=== PATIENT | female | born 1955 | race Caucasian/White ===

== ENCOUNTER 2020-02-07 23:26 | Emergency (ER) | payer MEDICARE, MEDICAID ==
[2020-02-07] MEDS ORDERED: traMADol 50 MG Tab PO ONE (23:27)
[2020-02-08 00:20] LABS: ANION GAP 13.7 mEq/L (7-13)
[2020-02-08] MEDS ORDERED: cefTRIAXone 1 GM in Sodium Chloride 0.9% 50 ML IV ONE (00:21)
--- NOTE | 2020-02-08 00:22 | EDM.PDOC ---
ED HPI GENERAL MEDICAL PROBLEM - General Chief Complaint: Skin Complaint Stated Complaint: SORE ON LEG Time Seen by Provider: 02/07/20 23:40 Source of Information: Reports: Patient History Limitations: Reports: No Limitations - History of Present Illness INITIAL COMMENTS - FREE TEXT/NARRATIVE: ED with c/o redness swelling and pain to right lower leg. Dropped 2x4 on Thursday and scratched front of leg. Pustular drainage today. No hx skin infections. IDDM with slight increase in evenig blood sugar from normal. no fever or chills. Right Lower Leg Pain Score (Numeric/FACES): 9 - Related Data Allergies Allergy/AdvReac Type Severity Reaction Status Date / Time codeine Allergy Abdominal Verified 02/08/20 00:16 Pain erythromycin base Allergy Itching Verified 02/08/20 00:16 [Erythromycin Base] sumatriptan [From Imitrex] Allergy Tachycardia Verified 02/08/20 00:16 sumatriptan succinate Allergy Tachycardia Verified 02/08/20 00:16 [From Imitrex] Home Meds: Home Meds DULoxetine [Cymbalta] 120 mg PO DAILY 01/07/14 [History] Insulin Detemir [Levemir] 45 unit SUBCUT BEDTIME 01/07/14 [History] Metoprolol Tartrate 100 mg PO BID 01/07/14 [History] amLODIPine [Norvasc] 10 mg PO DAILY 01/07/14 [History] sitaGLIPtin Phos/Metformin HCl [Janumet 50-500 MG] 1 tab PO BID 02/28/14 [ History] Insulin Aspart [Novolog Flexpen] See Protocol SQ BID 05/01/14 [History] Aspirin 325 mg PO DAILY 06/12/14 [History] Albuterol [Proair HFA] 2 puff INH Q6H PRN 04/02/16 [History] Formoterol/Mometasone [Dulera 100 MCG/5 MCG] 1 puff PO BID PRN 04/02/16 [History ] Gemfibrozil 1 tab PO DAILY 04/02/16 [History] atorvaSTATin [Lipitor] 80 mg PO BEDTIME 04/02/16 [History] Losartan Potassium [Cozaar] 100 mg PO DAILY 04/22/16 [History] Magnesium Oxide 400 mg PO BID 04/22/16 [History] Pantoprazole [ProTONIX] 40 mg PO DAILY 04/22/16 [History] Potassium Chloride [Klor-Con M20] 20 meq PO BID 04/22/16 [History] Triamcinolone Acetonide [Triamcinolone Acetonide 0.1% Oint] 1 applic TOP ASDIRECTED PRN 04/22/16 [History] Past Medical History HEENT History: Reports: Hard of Hearing, Impaired Vision, Other (See Below) Other HEENT History: WEARS CORRECTIVE LENSES Cardiovascular History: Reports: CAD, High Cholesterol, Hypertension Respiratory History: Reports: Bronchitis, Recurrent, Sleep Apnea Gastrointestinal History: Reports: Chronic Diarrhea, Colon Polyp, GERD Other Gastrointestinal History: states diarrhea for 1 year Genitourinary History: Reports: None 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: Musculoskeletal History: Reports: Back Pain, Chronic Neurological History: Reports: Migraines Psychiatric History: Reports: Depression Endocrine/Metabolic History: Reports: Diabetes, Type II Hematologic History: Reports: None Immunologic History: Reports: None Oncologic (Cancer) History: Reports: Cervix Dermatologic History: Reports: None - Infectious Disease History Infectious Disease History: Reports: Chicken Pox, Measles, Mumps, Rubella - Past Surgical History Head Surgeries/Procedures: Reports: None HEENT Surgical History: Reports: Other (See Below) Female Surgical History: Reports: Hysterectomy Neurological Surgical History: Reports: None Musculoskeletal Surgical History: Reports: Other (See Below) Oncologic Surgical History: Reports: None Dermatological Surgical History: Reports: None Social & Family History - Family History Family Medical History: Noncontributory - Tobacco Use Smoking Status *Q: Current Every Day Smoker Years of Tobacco use: 40 Packs/Tins Daily: 1 - Caffeine Use Caffeine Use: Reports: Coffee - Recreational Drug Use Recreational Drug Use: No - Living Situation & Occupation Living situation: Reports: with Family ED ROS GENERAL - Review of Systems Review Of Systems: Comprehensive ROS is negative, except as noted in HPI. ED EXAM, SKIN/RASH Exam: See Below Exam Limited By: No Limitations General Appearance: Alert, Mild Distress Eye Exam: Bilateral Eye: EOMI Ears: Normal External Exam Nose: Normal Inspection Throat/Mouth: Normal Inspection Head: Atraumatic, Normocephalic Neck: Normal Inspection, Full Range of Motion Respiratory/Chest: No Respiratory Distress, Normal Breath Sounds Cardiovascular: Normal Peripheral Pulses, Regular Rate, Rhythm GI/Abdominal: Soft Extremities: Normal Range of Motion, Increased Warmth, Redness (RIght anterior chin lower extremity) Neurological: Alert, Oriented, Normal Cognition Psychiatric: Normal Affect, Normal Mood Skin: Warm, Dry, Intact Location, Skin: Lower Extremity, Right (7cm vertical lesion 1cm superficial gaping, bloody crusting to edges with few macular cloudy blisters, scant dranage lower incision) Associated features: Warmth, Tenderness, Swelling, Induration Course - Vital Signs Last Recorded V/S: Last Vital Signs Temp 97.6 F 02/08/20 00:32 Pulse 79 02/08/20 00:32 Resp 17 02/08/20 00:32 BP 145/62 H 02/08/20 00:55 Pulse Ox 98 02/08/20 00:32 - Orders/Labs/Meds Orders: Active Orders 24 hr Category Date Time Status CULTURE BLOOD [BC] Stat Lab 02/07/20 23:39 Ordered CULTURE BLOOD [BC] Stat Lab 02/07/20 23:51 Received CULTURE WOUND [RM] Stat Lab 02/08/20 00:21 Received Blood Culture x2 Reflex Set [OM.PC] Stat Oth 02/07/20 23:38 Ordered Labs: Laboratory Tests 02/07/20 02/07/20 02/07/20 Range/Units 23:51 23:51 23:51 WBC 7.4 (5.0-10.0) 10^3/uL RBC 4.53 (4.2-5.4) 10^6/uL Hgb 14.1 (12.0-16.0) g/dL Hct 41.7 (37.0-47.0) % MCV 92.1 D (80-100) fL MCH 31.1 (27.0-34.0) pg MCHC 33.8 (33.0-35.0) g/dL Plt Count 222 (150-450) 10^3/uL Neut % (Auto) 51.8 (42.2-75.2) % Lymph % (Auto) 35.2 (20.5-50.1) % [place] % (Auto) 9.8 H (2-8) % Eos % (Auto) 2.3 (1.0-3.0) % Baso % (Auto) 0.9 (0.0-1.0) % Sodium 137 (136-145) mmol/L Potassium 3.7 (3.5-5.1) mmol/L Chloride 98 (98-107) mmol/L Carbon Dioxide 29 (21-32) mmol/L Anion Gap 13.7 H (7-13) mEq/L BUN 18 (7-18) mg/dL Creatinine 0.96 (0.55-1.02) mg/dL Est Cr Clr Drug Dosing 55.42 mL/min Estimated GFR (MDRD) 59 BUN/Creatinine Ratio 18.8 (No establ ref range) Glucose 310 H (74-99) mg/dL Lactic Acid 1.6 (0.4-2.0) mmol/L Calcium 9.7 (8.5-10.1) mg/dL Total Bilirubin 0.5 (0.2-1.0) mg/dL AST 39 H (15-37) U/L ALT 56 (14-59) U/L Alkaline Phosphatase 144 H (46-116) U/L Total Protein 7.1 (6.4-8.2) g/dL Albumin 3.6 (3.4-5.0) g/dL Globulin 3.5 Albumin/Globulin Ratio 1.0 Meds: Medications Discontinued Medications Generic Name Dose Route Start Last Admin Trade Name Freq PRN Reason Stop Dose Admin Hydrocodone Bitart/Acetaminophen 1 tab 02/08/20 00:32 02/08/20 00:37 [place] 325-10 Mg PO 02/08/20 00:33 1 tab ONETIME ONE Administration Ceftriaxone Sodium 1 gm/ 50 mls @ 100 mls/hr 02/08/20 00:21 02/08/20 00:30 Sodium Chloride IV 02/08/20 00:50 100 mls/hr ONETIME ONE Administration Tramadol HCl Confirm 02/08/20 00:53 02/08/20 01:02 Ultram Administered 02/08/20 00:54 Not Given Dose 50 mg .ROUTE .STK-MED ONE Departure - Departure Time of Disposition: 01:15 Disposition: Home, Self-Care 01 Condition: Good Clinical Impression: IDDM (insulin dependent diabetes mellitus) Cellulitis Qualifiers: Site of cellulitis: extremity Site of cellulitis of extremity: lower extremity Laterality: right Qualified Code(s): L03.115 - Cellulitis of right lower limb - Discharge Information *PRESCRIPTION DRUG MONITORING PROGRAM REVIEWED*: No *COPY OF PRESCRIPTION DRUG MONITORING REPORT IN PATIENT LILIANA: No Instructions: Cellulitis, Adult Forms: ED Department Discharge Additional Instructions: Tramadol 50mg one q 6 hours as needed for severe pain doxycycline 100mg one twice daily for one week Clinic follow up on Thursday keep area clean and dry cover when up Sepsis Event Note - Evaluation Sepsis Screening Result: No Definite Risk - Focused Exam Vital Signs: Vital Signs Temp Pulse Resp BP Pulse Ox 02/08/20 00:55 145/62 H 02/08/20 00:32 97.6 F 79 17 178/66 H 98 02/07/20 23:36 97.6 F 90 19 159/125 H 98 Date Exam was Performed: 02/08/20 Time Exam was Performed: 06:01 - My Orders Last 24 Hours: My Active Orders 02/07/20 23:38 Blood Culture x2 Reflex Set [OM.PC] Stat 02/07/20 23:39 CULTURE BLOOD [BC] Stat 02/07/20 23:51 CULTURE BLOOD [BC] Stat 02/08/20 00:21 CULTURE WOUND [RM] Stat - Assessment/Plan Last 24 Hours: My Active Orders 02/07/20 23:38 Blood Culture x2 Reflex Set [OM.PC] Stat 02/07/20 23:39 CULTURE BLOOD [BC] Stat 02/07/20 23:51 CULTURE BLOOD [BC] Stat 02/08/20 00:21 CULTURE WOUND [RM] Stat
[2020-02-08] MEDS ORDERED: Acetaminophen/HYDROcodone 325-10 MG Tab PO ONE (00:32)
[2020-02-08 00:33] VITALS: PULSE 79
[2020-02-08] MEDS ORDERED: traMADol 50 MG Tab ONE (00:53)
[2020-02-08 00:56] VITALS: BP 145/62
== END 2020-02-08 01:22 | disposition home or self-care (01) ==
LOC: DL.ED 23:26
DX: L03.115 Cellulitis of right lower limb (principal); E11.9 Type 2 diabetes mellitus without complications; I25.10 Atherosclerotic heart disease of native coronary artery without angina pectoris; E78.00 Pure hypercholesterolemia, unspecified; I10 Essential (primary) hypertension; K21.9 Gastro-esophageal reflux disease without esophagitis; F32.9 Major depressive disorder, single episode, unspecified; F17.210 Nicotine dependence, cigarettes, uncomplicated; Z88.5 Allergy status to narcotic agent; Z88.1 Allergy status to other antibiotic agents; Z88.8 Allergy status to other drugs, medicaments and biological substances; Z79.4 Long term (current) use of insulin; Z79.899 Other long term (current) drug therapy; Z79.82 Long term (current) use of aspirin
CPT/HCPCS: 36415; 80053; 83605; 85025; 87040; 87070; 96365; 99283-25; A9270-GY; J0696; J7050

== ENCOUNTER 2020-12-26 21:11 | Emergency (ER) | payer MEDICARE, MEDICAID ==
[2020-12-26 21:31] VITALS: BP 156/65; PULSE 78
--- NOTE | 2020-12-26 21:46 | CT ---
PROCEDURE INFORMATION: Exam: CT Head Without Contrast Exam date and time: 12/26/2020 9:38 PM Age: 65 years old Clinical indication: Speech disturbance; Additional info: Slurred speech, stroke code TECHNIQUE: Imaging protocol: Computed tomography of the head without contrast. Radiation optimization: All CT scans at this facility use at least one of these dose optimization techniques: automated exposure control; mA and/or kV adjustment per patient size (includes targeted exams where dose is matched to clinical indication); or iterative reconstruction. Other technique: STROKE PROTOCOL was implemented. COMPARISON: No relevant prior studies available. FINDINGS: Brain: There is mild amount of scattered areas of hypoattenuation of the supratentorial white matter, most likely secondary to microvascular ischemic changes. No acute intracranial hemorrhage. Cerebral ventricles: No ventriculomegaly. Bones/joints: Unremarkable. No acute fracture. Paranasal sinuses: Visualized sinuses are unremarkable. No fluid levels. Mastoid air cells: Visualized mastoid air cells are well aerated. Soft tissues: Unremarkable. IMPRESSION: No acute intracranial process. ASSESSMENT: ASPECTS (Nguyen Stroke Program Early CT Score) is 10.
[2020-12-26 21:48] LABS: CHLORIDE,CL 100 mmol/L (98-107); SODIUM,NA 138 mmol/L (136-145)
--- NOTE | 2020-12-26 22:32 | EDM.PDOC ---
ED HPI GENERAL MEDICAL PROBLEM - General Chief Complaint: Neuro Symptoms/Deficits Stated Complaint: POSSIBLE STROKE Time Seen by Provider: 12/26/20 21:20 - History of Present Illness INITIAL COMMENTS - FREE TEXT/NARRATIVE: There is a 65-year-old female with a significant past medical history of diabetes, hypokalemia, and hypomagnesemia that presented to the emergency department today for slurred speech. Flower states that around 9:00 this evening she was having dinner and drinking with one of her friends and she noticed that she was starting to slur her speech. During the episode she had associated right facial numbness and a heaviness in her tongue. She was taken to the emergency department by her friend when she arrived to emergency department her symptoms resolved. She denies any symptoms currently and feels back at her baseline. She denies any weakness, vision changes, chest pain, difficulty walking, or balance issues. Onset: Today Onset Date: 12/26/20 Onset Time: 09:00 Location: Reports: Face - Related Data Allergies Allergy/AdvReac Type Severity Reaction Status Date / Time codeine Allergy Abdominal Verified 12/26/20 21:24 Pain erythromycin base Allergy Itching Verified 12/26/20 21:24 [Erythromycin Base] sumatriptan [From Imitrex] Allergy Tachycardia Verified 12/26/20 21:24 sumatriptan succinate Allergy Tachycardia Verified 12/26/20 21:24 [From Imitrex] Home Meds: Home Meds DULoxetine [Cymbalta] 120 mg PO DAILY 01/07/14 [History] Insulin Detemir [Levemir] 45 unit SUBCUT BEDTIME 01/07/14 [History] Metoprolol Tartrate 100 mg PO BID 01/07/14 [History] amLODIPine [Norvasc] 10 mg PO DAILY 01/07/14 [History] sitaGLIPtin Phos/Metformin HCl [Janumet 50-500 MG] 1 tab PO BID 02/28/14 [History] Insulin Aspart [Novolog Flexpen] See Protocol SQ BID 05/01/14 [History] Aspirin 325 mg PO DAILY 06/12/14 [History] Albuterol [Proair HFA] 2 puff INH Q6H PRN 04/02/16 [History] Formoterol/Mometasone [Dulera 100 MCG/5 MCG] 1 puff PO BID PRN 04/02/16 [History] Gemfibrozil 1 tab PO DAILY 04/02/16 [History] atorvaSTATin [Lipitor] 80 mg PO BEDTIME 04/02/16 [History] Losartan Potassium [Cozaar] 100 mg PO DAILY 04/22/16 [History] Magnesium Oxide 400 mg PO BID 04/22/16 [History] Pantoprazole [ProTONIX] 40 mg PO DAILY 04/22/16 [History] Potassium Chloride [Klor-Con M20] 20 meq PO BID 04/22/16 [History] Triamcinolone Acetonide [Triamcinolone Acetonide 0.1% Oint] 1 applic TOP ASDIRECTED PRN 04/22/16 [History] Past Medical History HEENT History: Reports: Hard of Hearing, Impaired Vision, Other (See Below) Other HEENT History: WEARS CORRECTIVE LENSES Cardiovascular History: Reports: CAD, High Cholesterol, Hypertension Respiratory History: Reports: Bronchitis, Recurrent, Sleep Apnea Gastrointestinal History: Reports: Chronic Diarrhea, Colon Polyp, GERD Other Gastrointestinal History: states diarrhea for 1 year Genitourinary History: Reports: None 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: Musculoskeletal History: Reports: Back Pain, Chronic Neurological History: Reports: Migraines Psychiatric History: Reports: Depression Endocrine/Metabolic History: Reports: Diabetes, Type II Hematologic History: Reports: None Immunologic History: Reports: None Oncologic (Cancer) History: Reports: Cervix Dermatologic History: Reports: None - Infectious Disease History Infectious Disease History: Reports: Chicken Pox, Measles, Mumps, Rubella - Past Surgical History Head Surgeries/Procedures: Reports: None HEENT Surgical History: Reports: Other (See Below) Other HEENT Surgeries/Procedures: MANIBLE SURGERY X2 Cardiovascular Surgical History: Reports: None Respiratory Surgical History: Reports: None GI Surgical History: Reports: Cholecystectomy, Colonoscopy, EGD Other GI Surgeries/Procedures: 10 years ago Female Surgical History: Reports: Hysterectomy Neurological Surgical History: Reports: None Musculoskeletal Surgical History: Reports: Other (See Below) Other Musculoskeletal Surgeries/Procedures:: BUNIONECTOMY RIGHT Oncologic Surgical History: Reports: None Dermatological Surgical History: Reports: None Social & Family History - Family History Family Medical History: No Pertinent Family History - Tobacco Use Tobacco Use Status *Q: Current Every Day Tobacco User Years of Tobacco use: 50 Packs/Tins Daily: 1 - Caffeine Use Caffeine Use: Reports: Coffee - Recreational Drug Use Recreational Drug Use: No - Living Situation & Occupation Living situation: Reports: with Family ED ROS GENERAL - Review of Systems Review Of Systems: Comprehensive ROS is negative, except as noted in HPI. ED EXAM, NEURO - Physical Exam Exam: See Below Exam Limited By: No Limitations General Appearance: Alert, WD/WN, No Apparent Distress Ears: Normal External Exam Throat/Mouth: Normal Inspection Head Exam: Atraumatic Neck: Normal Inspection, Non-Tender, Full Range of Motion Respiratory/Chest: No Respiratory Distress, Lungs Clear, Normal Breath Sounds Cardiovascular: Normal Peripheral Pulses, Regular Rate, Rhythm, No Edema GI/Abdominal: Normal Bowel Sounds, Soft, Non-Tender Neurological: Alert, Normal Mood/Affect, CN II-XII Intact, No Motor/Sensory Deficits, Oriented x 3. No: Abnormal Finger to Nose, Abnormal Sensation #1 Interpretation EKG Date: 12/26/20 Time: 21:18 Rhythm: NSR Rate (Beats/Min): 74 [place]: Normal P-Wave: Present QRS: Normal ST-T: Normal QT: Normal Comparison: NA - No Prior EKG Course - Vital Signs Last Recorded V/S: Last Vital Signs Temp 98.1 F 12/26/20 21:20 Pulse 78 12/26/20 21:20 Resp 18 12/26/20 21:20 BP 156/65 H 12/26/20 21:20 Pulse Ox 99 12/26/20 21:20 - Orders/Labs/Meds Labs: Laboratory Tests 12/26/20 12/26/20 12/26/20 Range/Units 21:23 21:23 21:23 WBC 9.4 (5.0-10.0) 10^3/uL RBC 4.33 (4.2-5.4) 10^6/uL Hgb 13.2 (12.0-16.0) g/dL Hct 39.5 (37.0-47.0) % MCV 91.2 (80-100) fL MCH 30.5 (27.0-34.0) pg MCHC 33.4 (33.0-35.0) g/dL Plt Count 267 (150-450) 10^3/uL Neut % (Auto) 59.2 (42.2-75.2) % Lymph % (Auto) 29.3 (20.5-50.1) % [place] % (Auto) 8.9 H (2-8) % Eos % (Auto) 2.2 (1.0-3.0) % Baso % (Auto) 0.4 (0.0-1.0) % D-Dimer, Quantitative (0-400) ng/mL Sodium 138 (136-145) mmol/L Potassium 3.0 L (3.5-5.1) mmol/L Chloride 100 (98-107) mmol/L Carbon Dioxide 25 (21-32) mmol/L Anion Gap 16.0 H (7-13) mEq/L BUN 18 (7-18) mg/dL Creatinine 0.87 (0.55-1.02) mg/dL Est Cr Clr Drug Dosing 60.35 mL/min Estimated GFR (MDRD) > 60 BUN/Creatinine Ratio 20.7 (No establ ref range) Glucose 287 H (70-99) mg/dL POC Glucose 278 H (70-105) mg/dl Calcium 8.8 (8.5-10.1) mg/dL Magnesium (1.8-2.4) mg/dL Total Bilirubin 0.5 (0.2-1.0) mg/dL AST 29 (15-37) U/L ALT 34 (14-59) U/L Alkaline Phosphatase 139 H (46-116) U/L Troponin I < 0.017 (0.000-0.056) ng/mL Total Protein 6.9 (6.4-8.2) g/dL Albumin 3.4 (3.4-5.0) g/dL Globulin 3.5 Albumin/Globulin Ratio 1.0 Ethyl Alcohol 7 (0) mg/dL 12/26/20 12/26/20 Range/Units 21:23 21:23 WBC (5.0-10.0) 10^3/uL RBC (4.2-5.4) 10^6/uL Hgb (12.0-16.0) g/dL Hct (37.0-47.0) % MCV (80-100) fL MCH (27.0-34.0) pg MCHC (33.0-35.0) g/dL Plt Count (150-450) 10^3/uL Neut % (Auto) (42.2-75.2) % Lymph % (Auto) (20.5-50.1) % [place] % (Auto) (2-8) % Eos % (Auto) (1.0-3.0) % Baso % (Auto) (0.0-1.0) % D-Dimer, Quantitative 195 (0-400) ng/mL Sodium (136-145) mmol/L Potassium (3.5-5.1) mmol/L Chloride (98-107) mmol/L Carbon Dioxide (21-32) mmol/L Anion Gap (7-13) mEq/L BUN (7-18) mg/dL Creatinine (0.55-1.02) mg/dL Est Cr Clr Drug Dosing mL/min Estimated GFR (MDRD) BUN/Creatinine Ratio (No establ ref range) Glucose (70-99) mg/dL POC Glucose (70-105) mg/dl Calcium (8.5-10.1) mg/dL Magnesium 1.1 L (1.8-2.4) mg/dL Total Bilirubin (0.2-1.0) mg/dL AST (15-37) U/L ALT (14-59) U/L Alkaline Phosphatase (46-116) U/L Troponin I (0.000-0.056) ng/mL Total Protein (6.4-8.2) g/dL Albumin (3.4-5.0) g/dL Globulin Albumin/Globulin Ratio Ethyl Alcohol (0) mg/dL Meds: Medications Discontinued Medications Generic Name Dose Route Start Last Admin Trade Name Freq PRN Reason Stop Dose Admin Magnesium Sulfate 2 gm in 50 mls @ 25 mls/hr 12/26/20 22:49 12/26/20 23:01 Magnesium Sulfate In Water 2 Gm/50 Ml IV 12/27/20 00:48 25 mls/hr ONETIME ONE Administration Potassium Chloride 10 meq/ 100 mls @ 100 mls/hr 12/26/20 22:49 12/26/20 22:59 Premix IV 12/26/20 23:48 100 mls/hr ONETIME ONE Administration - Radiology Interpretation Free Text/Narrative:: Head CT wo contrast: PROCEDURE INFORMATION: Exam: CT Head Without Contrast Exam date and time: 12/26/2020 9:38 PM Age: 65 years old Clinical indication: Speech disturbance; Additional info: Slurred speech, stroke code TECHNIQUE: Imaging protocol: Computed tomography of the head without contrast. Radiation optimization: All CT scans at this facility use at least one of these dose optimization techniques: automated exposure control; mA and/or kV adjustment per patient size (includes targeted exams where dose is matched to clinical indication); or iterative reconstruction. Other technique: STROKE PROTOCOL was implemented. COMPARISON: No relevant prior studies available. FINDINGS: Brain: There is mild amount of scattered areas of hypoattenuation of the supratentorial white matter, most likely secondary to microvascular ischemic changes. No acute intracranial hemorrhage. Cerebral ventricles: No ventriculomegaly. Bones/joints: Unremarkable. No acute fracture. Paranasal sinuses: Visualized sinuses are unremarkable. No fluid levels. Mastoid air cells: Visualized mastoid air cells are well aerated. Soft tissues: Unremarkable. IMPRESSION: No acute intracranial process. ASSESSMENT: ASPECTS (Nguyen Stroke Program Early CT Score) is 10. Thank you for allowing us to participate in the care of your patient. Dictated and Authenticated by: Bong Khoury MD 12/26/2020 9:46 PM Central Time ([place] & [place]) See rad report - Re-Assessments/Exams Free Text/Narrative Re-Assessment/Exam: 12/26/20 23:08 Patient also c/o tenderness and pain behind the right knee with walking. D-Dimer ordered, negative. 12/27/20 01:56 I saw and evaluated the patient. Discussed with resident and agree with residents findings and plan as documented in the residents note. Patient refuses to stay in the hospital. She states she will follow up with her primary care provider tomorrow. Departure - Departure Time of Disposition: 00:42 Disposition: Against Medical Advice 07 Condition: Fair Clinical Impression: Hypomagnesemia, Hypokalemia, Slurred speech, Right facial numbness - Discharge Information *PRESCRIPTION DRUG MONITORING PROGRAM REVIEWED*: No *COPY OF PRESCRIPTION DRUG MONITORING REPORT IN PATIENT LILIANA: No Instructions: Hypomagnesemia, Hypokalemia Referrals: PCP,Unobtain [Ordering Only Provider] - Forms: ED Department Discharge, Refusal of Care AMA Additional Instructions: Begin taking your magnesium again Make appointment with Dr. Javier in follow-up Return to the ER with any worsening of problems Sepsis Event Note (ED) - Evaluation Sepsis Screening Result: No Definite Risk - Focused Exam Vital Signs: Vital Signs Temp Pulse Resp BP Pulse Ox 12/26/20 21:20 98.1 F 78 18 156/65 H 99
[2020-12-26] MEDS ORDERED: Magnesium Sulfate/Water 2 GM/50 ML BAG IV ONE (22:49)
[2020-12-26] MEDS ORDERED: Potassium Chloride 10 MEQ in Premix Bag 1 BAG IV ONE (22:49)
== END 2020-12-27 00:59 | disposition left against medical advice (07) ==
LOC: DL.ED 21:11
DX: R47.81 Slurred speech (principal); E83.42 Hypomagnesemia; E87.6 Hypokalemia; R20.0 Anesthesia of skin; E78.00 Pure hypercholesterolemia, unspecified; I10 Essential (primary) hypertension; I25.10 Atherosclerotic heart disease of native coronary artery without angina pectoris; K21.9 Gastro-esophageal reflux disease without esophagitis; E11.9 Type 2 diabetes mellitus without complications; Z88.5 Allergy status to narcotic agent; Z88.1 Allergy status to other antibiotic agents; Z88.8 Allergy status to other drugs, medicaments and biological substances; Z79.82 Long term (current) use of aspirin; Z79.4 Long term (current) use of insulin; Z72.0 Tobacco use
CPT/HCPCS: 36415; 70450; 80053; 80307; 82962; 83735; 84484; 85025; 85379; 93005; 93010; 96365; 96366; 96368; 99284; 99285; J3475; J3480

== ENCOUNTER → 2023-01-20 | Day surgery (SDC) | payer MEDICARE, MEDICAID ==
[~2023-01-20] MED LIST: Dextrose 5%-0.45% NaCl 1,000 ML IV SCH; Midazolam 1 MG/ML 2 ML SDV IV ONE; Midazolam 1 MG/ML 2 ML SDV ONE; fentaNYL 100 MCG/2 ML SDV IV ONE; fentaNYL 100 MCG/2 ML SDV ONE
[2023-01-20 08:37] VITALS: BP 143/58; PULSE 62
== END | disposition home or self-care (01) ==
LOC: DL.ENDO 05:25
PROVIDERS: ATTEND Internal Medicine Gastroenterology
DX: K29.50 Unspecified chronic gastritis without bleeding (principal); K31.89 Other diseases of stomach and duodenum; D50.9 Iron deficiency anemia, unspecified; E66.09 Other obesity due to excess calories; E11.9 Type 2 diabetes mellitus without complications; E78.5 Hyperlipidemia, unspecified; I10 Essential (primary) hypertension; G47.33 Obstructive sleep apnea (adult) (pediatric); F32.A Depression, unspecified; Z90.49 Acquired absence of other specified parts of digestive tract; Z98.890 Other specified postprocedural states; Z86.16 Personal history of COVID-19; Z88.5 Allergy status to narcotic agent; Z88.1 Allergy status to other antibiotic agents; Z88.8 Allergy status to other drugs, medicaments and biological substances; Z68.30 Body mass index [BMI] 30.0-30.9, adult
CPT/HCPCS: 43239; 87077; J2250; J3010; J7042

== ENCOUNTER 2023-01-23 06:54 | Day surgery (SDC) | payer MEDICARE, MEDICAID ==
[~2023-01-23 06:54] MED LIST changes: -Midazolam 1 MG/ML 2 ML SDV IV ONE; +Sodium Chloride 0.9% 10 ML Syringe FLUSH PRN; +Sodium Chloride 0.9% 10 ML Syringe FLUSH SCH; -fentaNYL 100 MCG/2 ML SDV IV ONE
[2023-01-23] MEDS ORDERED: Midazolam 1 MG/ML 2 ML SDV IV ONE ×9 (06:55→08:41)
[2023-01-23] MEDS ORDERED: fentaNYL 100 MCG/2 ML SDV IV ONE ×8 (06:55→08:39)
[2023-01-23 09:50] VITALS: PULSE 51
[2023-01-23 10:12] VITALS: BP 129/56
== END 2023-01-23 11:00 | disposition home or self-care (01) ==
LOC: DL.ENDO 06:54
PROVIDERS: ATTEND Internal Medicine Gastroenterology
DX: K63.5 Polyp of colon (principal); K57.30 Diverticulosis of large intestine without perforation or abscess without bleeding; D64.9 Anemia, unspecified; F17.210 Nicotine dependence, cigarettes, uncomplicated; K64.4 Residual hemorrhoidal skin tags; K64.8 Other hemorrhoids
CPT/HCPCS: 88305; J2250; J3010; J7042

== ENCOUNTER 2025-03-29 08:59 | Day surgery (SDC) | payer MEDICARE, OTHER, MEDICAID ==
[~2025-03-29 08:59] MED LIST changes: +Dexamethasone 4 MG/ML SDV ONE; -Dextrose 5%-0.45% NaCl 1,000 ML IV SCH; -Midazolam 1 MG/ML 2 ML SDV ONE; -Sodium Chloride 0.9% 10 ML Syringe FLUSH PRN; -Sodium Chloride 0.9% 10 ML Syringe FLUSH SCH; -fentaNYL 100 MCG/2 ML SDV ONE
[2025-03-29] MEDS ORDERED: Midazolam 1 MG/ML 2 ML SDV IV ONE (09:00)
[2025-03-29] MEDS ORDERED: Ondansetron 4 MG/2 ML SDV IVPUSH PRN (09:00)
[2025-03-29] MEDS ORDERED: Sodium Chloride 0.9% 10 ML Syringe IV ONE (09:00)
[2025-03-29] MEDS ORDERED: Dexamethasone 4 MG/ML SDV IV ONE (09:00)
[2025-03-29] MEDS: Moxifloxacin 0.5% Ophth Soln 3 ML Bottle EYELF ONE (09:29)
[2025-03-29] MEDS: Povidone-Iodine 5% Sterile Ophth Soln 30 ML Bottle EYELF ONE ×2 (09:29→09:50)
[2025-03-29] MEDS: Timolol Maleate 0.5% Ophth Soln 5 ML Bottle EYELF ONE (09:30)
[2025-03-29] MEDS: Phenylephrine 10% Ophth Soln 5 ML Bot EYELF PRN (09:30)
[2025-03-29] MEDS: Cataract Ophth Solution EYELF ONE (09:31)
[2025-03-29] MEDS: Apraclonidine 0.5% Ophth Soln 5 ML Bot EYELF ONE ×2 (09:50→10:05)
[2025-03-29] MEDS: Diclofenac Sodium 0.1% Ophth Soln 5 ML Bottle EYELF ONE ×2 (09:50→10:05)
[2025-03-29] MEDS: Dexamethasone/Neomycin/Polymyxin B Ophth Oint 3.5 GM Tube EYELF ONE ×2 (09:51→10:05)
[2025-03-29 10:38] VITALS: BP 142/73; PULSE 100
[2025-03-29] MEDS ORDERED: Dexamethasone 4 MG/ML SDV ONE (10:49)
== END 2025-03-29 10:40 | disposition home or self-care (01) ==
LOC: DL.SDS 08:59
PROVIDERS: ATTEND Ophthalmology
DX: E11.36 Type 2 diabetes mellitus with diabetic cataract (principal); H25.812 Combined forms of age-related cataract, left eye; I10 Essential (primary) hypertension; I25.10 Atherosclerotic heart disease of native coronary artery without angina pectoris; F32.A Depression, unspecified; E03.9 Hypothyroidism, unspecified; F17.210 Nicotine dependence, cigarettes, uncomplicated; Z88.5 Allergy status to narcotic agent; Z88.1 Allergy status to other antibiotic agents; Z88.8 Allergy status to other drugs, medicaments and biological substances; Z79.890 Hormone replacement therapy; Z79.4 Long term (current) use of insulin; Z79.899 Other long term (current) drug therapy
CPT/HCPCS: 66984; A9270; J1100; J2003; J2250; J3370; V2632; J3490

== ENCOUNTER 2025-04-12 06:41 | Day surgery (SDC) | payer MEDICARE, MEDICAID ==
[2025-04-12] MEDS ORDERED: Midazolam 1 MG/ML 2 ML SDV IV ONE (06:42)
[2025-04-12] MEDS ORDERED: Dexamethasone 4 MG/ML SDV IV ONE (06:42)
[2025-04-12] MEDS ORDERED: Sodium Chloride 0.9% 10 ML Syringe IV ONE (06:42)
[2025-04-12] MEDS: Povidone-Iodine 5% Sterile Ophth Soln 30 ML Bottle EYERT ONE ×2 (07:36→09:37)
[2025-04-12] MEDS: Moxifloxacin 0.5% Ophth Soln 3 ML Bottle EYERT ONE (07:36)
[2025-04-12] MEDS: Phenylephrine 10% Ophth Soln 5 ML Bot EYERT ONE (07:37)
[2025-04-12] MEDS: Cataract Ophth Solution EYERT ONE (07:38)
[2025-04-12] MEDS: Timolol Maleate 0.5% Ophth Soln 5 ML Bottle EYERT ONE (07:38)
[2025-04-12] MEDS ORDERED: Ondansetron 4 MG/2 ML SDV IVPUSH PRN (08:30)
[2025-04-12] MEDS: Diclofenac Sodium 0.1% Ophth Soln 5 ML Bottle EYERT ONE (09:50)
[2025-04-12] MEDS: Dexamethasone/Neomycin/Polymyxin B Ophth Oint 3.5 GM Tube EYERT ONE (09:50)
[2025-04-12] MEDS: Apraclonidine 0.5% Ophth Soln 5 ML Bot EYERT ONE (09:50)
[2025-04-12 10:24] VITALS: BP 156/67; PULSE 52
== END 2025-04-12 10:26 | disposition home or self-care (01) ==
LOC: DL.SDS 06:41
PROVIDERS: ATTEND Ophthalmology
DX: E11.36 Type 2 diabetes mellitus with diabetic cataract (principal); H25.811 Combined forms of age-related cataract, right eye; I10 Essential (primary) hypertension; E03.9 Hypothyroidism, unspecified; I25.10 Atherosclerotic heart disease of native coronary artery without angina pectoris; F17.210 Nicotine dependence, cigarettes, uncomplicated; Z88.5 Allergy status to narcotic agent; Z88.1 Allergy status to other antibiotic agents; Z79.899 Other long term (current) drug therapy; Z79.890 Hormone replacement therapy
CPT/HCPCS: 00142; 66984; A9270; J1100; J2003; J2250; J3373; V2632; J3490